=== PATIENT | male | born 1980 | race Caucasian/White ===

== ENCOUNTER 2023-10-24 12:27 | Outpatient (AMB) | payer MEDICARE, MEDICAID, SELFPAY ==
--- NOTE | 2023-10-24 12:32 | A.OFFVIS_ITS ---
Vital Signs 10/24/23 12:42 Height 5 ft 5 in Weight 252 lb 3.341 oz BMI 42.0 BP 110/68 Blood Pressure Location Lt brachial Position Sitting Pulse 90 Pulse Source Pulse Oximeter Pulse Oximetry (%) 98 Oxygen Delivery Method Room Air Intake Visit Reasons: Blood in stool Intake Note: Gurvinder presents in office today for an initial assessment visit. CC: Pt reports having melena. Pt reports onset over the course of the last few years (pandemic period). Pt reports that he has had intermittent episodes which typically last only for a day or two. Pt reports that he typically has an episode 2-3 times per year. Pt reports that the presentation appears as bright red blood. Pt states that it seems rather idiopathic in nature and has no provocation. Pt also reports having hx of IBS, which is uncontrolled at the moment. 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 male is here today for pre colonoscopy screening.? Patient was sent to us by his PCP.? This is his first colonoscopy screening.? Denies any personal or family history of gastrointestinal disease, colon polyps, or CRC.? Patient admits to have blood in his stools few times a year. Patient denies feeling really constipated, however occasionally he feels like he will have few bowel movements a day that are rather soft and then mild constipation. Patient report s that his symptoms are usually after he eats certain meals. Diagnosed with IBS in the past. Symptoms started around 2020 during COVID. Patient denies melena, unintentional weight loss. Patient reports of so postprandial reflux and occasionally epigastric discomfort. Patient admits to abdominal bloating postprandially. [facility] Medical History (Updated 10/24/23 @ 12:38 by ELLIOT Bradley) Gallstones Anxiety and depression Schizophrenic disorder IBS (irritable bowel syndrome) Surgical History (Updated 10/24/23 @ 12:38 by ELLIOT Bradley) History of cholecystectomy Social History (Updated 10/24/23 @ 12:40 by ELLIOT Bradley) Alcohol intake: current Comment: Hardly any. Patient Tobacco Use Status: Current everyday Tobacco user Tobacco use type: Cigarette Cigarette Packs Per Day: 1 e-Cigarette/Vaping Use: Former Use Substance Use Type: Marijuana Review of Systems Const Denies weight gain and Denies weight loss ENT Reports no additional complaints, Denies dysphagia and Denies odynophagia Card Reports no additional complaints Resp Reports no additional complaints GI Denies abdominal pain, Denies belching, Denies melena, Reports bloating, Reports constipation (Occasional), Denies dysphagia, Denies excessive flatus, Denies dyspepsia, Reports heartburn, Denies diarrhea, Reports loose stools, Denies nausea, Denies odynophagia and Denies vomiting Reports no additional complaints Musc Reports no additional complaints Neuro Reports no additional complaints Psych Reports no additional complaints Endo Reports no additional complaints Physical Exam Vital Signs: Last Vital Signs Pulse 90 10/24/23 12:42 BP 110/68 10/24/23 12:42 Pulse Ox 98 10/24/23 12:42 Oxygen Delivery Method Room Air 10/24/23 12:42 BMI result Body Mass Index 42.0 Const General: healthy appearing and no acute distress Nutritional Appearance: obese Orientation/consciousness: patient oriented x3 Resp Effort & Inspection: normal respiratory effort, able to speak in complete sentences, no tracheal deviation and symmetric chest movement Auscultation: clear to auscultation bilaterally Cardio Rate: regular rate GI Inspection: Yes normal to inspection, No distended and Yes obesity Palpation (GI): Soft to palpation, not firm, nontender and No hepatosplenomegaly present Auscultation: normal bowel sounds General: Yes no CVA tenderness Back/Spine/Pelvis Back: no CVA tenderness Skin General skin exam: elasticity normal, turgor normal and dry skin Neuro General: patient oriented x3 Psych Appearance: grossly normal Mental Status: mental status grossly normal Assessment & Plan Assessment & Plan (1) Screen for colon cancer: Code(s): Z12.11 - Encounter for screening for malignant neoplasm of colon (2) IBS (irritable bowel syndrome): Code(s): K58.9 - Irritable bowel syndrome without diarrhea Qualifiers: Irritable bowel syndrome type: without diarrhea Qualified Code(s): K58.9 - Irritable bowel syndrome without diarrhea (3) Rectal bleed: Code(s): K62.5 - Hemorrhage of anus and rectum Plan Patient will increase fiber intake in his diet. Will start him on fiber supplements. Patient will take senna in the afternoon to help him empty his bowels better. Will send a script for Proctosol. Patient will start taking pantoprazole in the morning to help him with acid reflux. Discussed with patient the importance of avoiding dietary triggers and late night snacking. Staying upright for minimum 3 hours after meals discussed with patient. Patient will return in 2 months to discuss going for colonoscopy and possible upper endoscopy if his symptoms continue. Patient is agreeable to this plan and verbalizes understanding of instructions. He was given the opportunity to ask questions and all questions answered. Thank you for allowing me to participate in his care Medications: New sennosides (Natural Senna Laxative) 8.6 mg PO BEDTIME 90 tabs 3RF constipation K59.00 - Constipation, unspecified hydrocortisone 2.5% (Proctosol HC) 1 appl CA BID-QID PRN 30 grams 2RF hemorrhoids K64.9 - Unspecified hemorrhoids methylcellulose (laxative) (Citrucel) take it with full glass of water 500 mg PO DAILY 90 tabs 2RF K59.00 - Constipation, unspecified pantoprazole take one tablet half an hour before breakfast 40 mg PO DAILY 30 tabs 2RF K21.9 - Gastro-esophageal reflux disease without esophagitis Coding Level of Care Code New Pt Level 3 (22853) Diagnoses Screen for colon cancer Z12.11 Irritable bowel syndrome without diarrhea K58.9 Irritable bowel syndrome type: without diarrhea Rectal bleed K62.5 Time Spent (min) 40 Comment 30 minutes spent with patient and additional 10 minutes spent reviewing his records
[2023-10-24 12:42] VITALS: BP 110/68; PULSE 90; O2SAT 98; BMI 42.0
== END 2023-10-24 14:15 | disposition home or self-care (01) ==
PROVIDERS: PCP Family Medicine; Visit Provider Nurse Practitioner Family
DX: K62.5 Hemorrhage of anus and rectum (principal); K58.9 Irritable bowel syndrome, unspecified; Z12.11 Encounter for screening for malignant neoplasm of colon
CPT/HCPCS: 99203

== ENCOUNTER → 2023-10-24 12:27 | Outpatient (BNVA) | payer MEDICARE, MEDICAID, SELFPAY | PROVIDERS: PCP Family Medicine; Visit Provider Nurse Practitioner Family | DX: Z12.11 Encounter for screening for malignant neoplasm of colon (principal); K58.9 Irritable bowel syndrome, unspecified; K62.5 Hemorrhage of anus and rectum | CPT/HCPCS: 99202 ==

== ENCOUNTER 2023-11-06 10:52 | Day surgery (SDC) | payer MEDICARE, MEDICAID, SELFPAY ==
[2023-11-06 11:25] VITALS: BMI 43.3
[2023-11-06 11:27] VITALS: BP 130/84; PULSE 78; RESP 20; TEMP 36.4; O2SAT 96
[2023-11-06] MEDS: Lactated Ringers 1,000 ML 50 ML IVCONT (11:51)
--- NOTE | 2023-11-06 12:07 | P.CONAN_ITS ---
[facility] Past Medical History Medical History (Updated 10/24/23 @ 12:38 by ELLIOT Bradley) Gallstones Anxiety and depression Schizophrenic disorder IBS (irritable bowel syndrome) Family History Family history of problems with anesthesia: No Surgical History Surgical History (Updated 10/24/23 @ 12:38 by ELLIOT Bradley) History of cholecystectomy History of Problems with Anesthesia: No Social History Social History (Updated 10/24/23 @ 12:40 by ELLIOT Bradley) Alcohol intake: current Alcohol intake frequency: does not drink Comment: Hardly any. Patient Tobacco Use Status: Current everyday Tobacco user Tobacco use type: Cigarette Cigarette Packs Per Day: 1 e-Cigarette/Vaping Use: Former Use Substance Use Type: Marijuana Are you DNR?: No Advance Directives: No Advance Directives Information Provided: Yes Nutrition Risks: No Nutritional Risk Meds Allergies Allergy/AdvReac Type Severity Reaction Status Date / Time codeine Allergy Unknown Anaphylaxis Verified 10/24/23 12:40 Active Medications: Current Medications Lactated Ringer's (Lr) 1,000 mls @ 50 mls/hr IVCONT .Q20H FERNANDEZ Last Admin: 11/06/23 11:51 Dose: 50 mls/hr Home Medications ?Medication ?Instructions ?Recorded ?Confirmed ?Last Taken ?Type dextroamphetamine-amphetamine 30 1 tab PO TID 10/24/23 Unknown History mg tablet diazepam 10 mg tablet 10 mg PO DAILY PRN 10/24/23 Unknown History haloperidol 5 mg tablet 5 mg PO BEDTIME 10/24/23 Unknown History nicotine 21 mg/24 hr daily 1 patch topical DAILY 10/24/23 Unknown History transdermal patch valacyclovir 1 gram tablet 4,000 mg PO ONCE 10/24/23 Unknown History Exam Height,Weight and Vital Signs: Height 5 ft 5 in Weight 118.07 kg Last Vital Signs Temp 97.5 F 11/06/23 11:27 Pulse 78 11/06/23 11:27 Resp 20 11/06/23 11:27 BP 130/84 11/06/23 11:27 Pulse Ox 96 11/06/23 11:27 O2 Del Method Room Air 11/06/23 11:27 Airway Mallampati Class: II TM Dist: >3cm Neck ROM: Full Heart: rrr Lungs: cta Assessment and Plan Assessment Anesthesia Assessment: Anesthesia Plan Discussed and Chart Reviewed Final Anesthetic Review Family History of Problems with Anesthesia: No History of Problems with Anesthesia: No NPO: Yes ASA Class: II Final Preanesthetic Review: No Changes in Pt Med Stat, Meds/Allgs Chart Reviewed and Consent Obtained/Reviewed Patient Risk: Low Procedure Risk: Low Anesthetic Plan Anesthetic Plan: MAC: Disposition: Standard PACU
--- NOTE | 2023-11-06 12:23 | MHC.SHP ---
Pre-Procedural Eval Section A - 24 Hr Update-Section A only Date of Service: 11/06/23 Section B - Complete if H&P > 30 days Chief Complaint: Gastro-esophageal reflux disease without esophagit Details of Present Illness: rectal bleeding and nausea Relevant Family History (Specify if Yes): No Relevant Social History: Tobacco Use (thc use) Present Medications: see Short Stay Collaborative assessment Medical History: Significant History ( Gallstones Anxiety and depression Schizophrenic disorder IBS (irritable bowel syndrome)) History of Previous Operations: Relevant previous surgery/procedure and date(s) (History of cholecystectomy) Allergies: Allergies Allergy/AdvReac Type Severity Reaction Status Date / Time codeine Allergy Unknown Anaphylaxis Verified 10/24/23 12:40 Review of Systems Sugical H&P ROS: Negative: Constitution, Cardiovascular, Respiratory, Neurological, Psychiatric, Hem-Onc, Allergic/Immunologic, Gastrointestinal, Genitourinary, Musculoskeletal, Integumentary, Endocrine and Eyes/Ears/Nose/Throat Exam Surgical H&P Exam: Normal: HEENT, Normal: Heart, Normal: Lungs, Normal: Extremities, Normal: Abdomen, Normal: Skin and Normal: Neurological Plan Diagnosis/Plan: Unchanged I have reviewed the history and physical and performed a pertinent physical examination on my patient. No changes have occurred unless specified. Time Spent With Patient Time: Total time managing care of this patient today ____ minutes.
--- NOTE | 2023-11-06 13:38 | P.OPN-COLO_ITS ---
Colonoscopy Operative Note Operative Note Date of Service: 11/06/23 Narrative: Operative Information Procedure Description: EGD, Colonoscopy Indication: nausea, rectal bleeding Anesthesia: MAC FLEXIBLE TRANSORAL UPPER GASTROINTESTINAL ENDOSCOPY AND COLONOSCOPY PROCEDURE NOTE UPPER ENDOSCOPY Consent: Indications for the procedure and potential complications of bleeding, perforation, reaction to medications and missed diagnosis were discussed with the patient and informed consent was obtained. Instrument: Olympus GIF H 190 J mid size upper endoscope Monitoring: Vital signs and clinical assessment, continuous EKG monitoring, Pulse oximetry, Carbon Dioxide monitoring and blood pressure monitoring were done throughout the procedure. Procedure: The patient was placed in the left lateral decubitis position and pre-procedure medications were administered and a bite block was placed. The endoscope was inserted into the mouth and advanced under direct vision to the third part of duodenum. A careful inspection was made as the upper endoscope was withdrawn including a retroflexed examination of the proximal stomach; Findings and interventions are described below. Findings: Larynx:normal Esophagus: GE junction at 40 cm, diaphragm hiatus at 40 cm, boggy inflammed mucosa, bx taken from GEJ, distal and proximal esophagus Stomach: Patchy erythema and granularity. Biopsies were obtained. Grade 2 flap valve on retroflexed examination of the cardia. Duodenum: Mild duodenitis --bx taken Intervention: Biopsies as noted above, COLONOSCOPY Instrument: Olympus variable stiffness pediatric scope 190L Colonoscopy Monitoring: Vital signs and clinical assessment, continuous EKG monitoring, Pulse oximetry, Carbon Dioxide monitoring and blood pressure monitoring were done throughout the procedure. Colon withdrawal time was 9 minutes. Procedure: The patient was placed in the left lateral decubitis position and pre-procedure medications were administered. After a digital rectal examination of the ano-rectum, the video colonoscope was inserted into the rectum and advanced through the colon to the cecum/TI. The colonoscope was slowly withdrawn in a retrograde panoramic fashion and the colon mucosa was carefully examined including a retroflexed view of the rectum. Findings and interventions are described below. Procedure Difficulty:easy Findings: Terminal [id number] taken Random colon bx taken, also limited peristalsis seen Cecum:normal Ascending Colon: normal Transverse Colon -normal Descending Colon:normal Sigmoid Colon: normal Rectum: Retroflexion with medium internal hemorrhoids, grade I-- x 3 sessile polyps 4-5 mm removed with cold forceps Anorectum - normal Colon preparation: [place] Bowel Preparation Scale Right colon; 2 Transverse colon: 2 Left colon; 2 (0 = Unprepared colon segment with mucosa not seen due to solid stool that cannot be cleared. 1 = Portion of mucosa of the colon segment seen, but other areas of the colon segment not well seen due to staining, residual stool and/or opaque liquid. 2 = Minor amount of residual staining, small fragments of stool and/or opaque liquid, but mucosa of colon segment seen well. 3 = Entire mucosa of colon segment seen well with no residual staining, small fragments of stool or opaque liquid) Impression and Post Procedure Diagnosis: Endoscopy Findings: esophagitis gastritis Colonoscopy Findings: colon polyps internal hemorrhoids Plan: Await Pathology results Repeat Colonoscopy in 5 years if adenomatous polyps, 10 yrs if hyperplastic or earlier if clinically indicated High fiber diet leaflet avoid straining at stool, epsom salts and sitz bath, anusol supps or cream check compliance with PPI and correct timing etc Above findings were reviewed with the patient and relevant handouts were provided if indicated.
[2023-11-06 13:44] VITALS: BP 131/74; PULSE 79; RESP 16; TEMP 36.1; O2SAT 96
[2023-11-06 13:59] VITALS: BP 131/82; PULSE 78; RESP 16; TEMP 36.3; O2SAT 96
== END 2023-11-06 14:27 | disposition home or self-care (01) ==
PROVIDERS: Visit Provider Internal Medicine Gastroenterology
PROC: (CPT 45380; principal; 2023-11-06 12:30)
DX: K62.5 Hemorrhage of anus and rectum (principal); K62.1 Rectal polyp; K58.9 Irritable bowel syndrome, unspecified; K59.00 Constipation, unspecified; K59.89 Other specified functional intestinal disorders; K64.0 First degree hemorrhoids; K21.9 Gastro-esophageal reflux disease without esophagitis; K20.80 Other esophagitis without bleeding; K29.50 Unspecified chronic gastritis without bleeding; K29.80 Duodenitis without bleeding; K44.9 Diaphragmatic hernia without obstruction or gangrene; F25.9 Schizoaffective disorder, unspecified; F41.8 Other specified anxiety disorders; Z79.899 Other long term (current) drug therapy; Z90.49 Acquired absence of other specified parts of digestive tract; Z88.5 Allergy status to narcotic agent; F17.210 Nicotine dependence, cigarettes, uncomplicated
CPT/HCPCS: 45380; 43239; 88305; 88313; 88342; J2704

== ENCOUNTER → 2023-11-06 10:52 | Outpatient (BNV) | payer MEDICARE, MEDICAID, SELFPAY | PROVIDERS: Visit Provider Internal Medicine Gastroenterology | DX: K29.70 Gastritis, unspecified, without bleeding (principal); K20.90 Esophagitis, unspecified without bleeding; K62.5 Hemorrhage of anus and rectum; K62.1 Rectal polyp; K64.0 First degree hemorrhoids | CPT/HCPCS: 43239; 45380 ==

== ENCOUNTER 2023-12-02 13:54 | Outpatient (AMB) | payer MEDICARE, MEDICAID, SELFPAY ==
--- NOTE | 2023-12-02 13:59 | MHC.OFFVIS ---
Vital Signs 12/02/23 14:05 Height 5 ft 5 in Weight 249 lb 9.012 oz BMI 41.5 BP 136/86 Blood Pressure Location Lt brachial Position Sitting Pulse 90 Pulse Source Pulse Oximeter Pulse Oximetry (%) 96 Oxygen Delivery Method Room Air Intake Visit Reasons: s/p colon Intake Note: Gurvinder presents in office today for a scheduled post op FUV. CC; Pt reports that he in fact had an EGD and a colo s.p. Pt denies any post op complications or new concerns. Pt is here to discuss the findings of his s/p. Cut Order Hand Required: No Accompanied by: Significant Other Allergies codeine Allergy (Unknown, Verified 12/02/23 14:05) Anaphylaxis HPI HPI s/p colon: Details: LAST VISIT: Screen for colon cancer IBS (irritable bowel syndrome) Rectal bleed Plan Patient will increase fiber intake in his diet. Will start him on fiber supplements. Patient will take senna in the afternoon to help him empty his bowels better. Will send a script for Proctosol. Patient will start taking pantoprazole in the morning to help him with acid reflux. Discussed with patient the importance of avoiding dietary triggers and late night snacking. Staying upright for minimum 3 hours after meals discussed with patient. Patient will return in 2 months to discuss going for colonoscopy and possible upper endoscopy if his symptoms continue. Patient is agreeable to this plan and verbalizes understanding of instructions. He was given the opportunity to ask questions and all questions answered. ? Thank you for allowing me to participate in his care Medications New sennosides (Natural Senna Laxative) 8.6 mg PO BEDTIME 90 tabs 3RF constipation K59.00 hydrocortisone 2.5% (Proctosol HC) 1 appl ID BID-QID PRN 30 grams 2RF hemorrhoids K64.9 methylcellulose (laxative) (Citrucel) take it with full glass of water 500 mg PO DAILY 90 tabs 2RF K59.00 pantoprazole take one tablet half an hour before breakfast 40 mg PO DAILY 30 tabs 2RF K21.9 UPPER ENDOSCOPY AND COLONOSCOPY: Findings: Larynx:normal Esophagus: GE junction at 40 cm, diaphragm hiatus at 40 cm, boggy inflammed mucosa, bx taken from GEJ, distal and proximal esophagus Stomach: Patchy erythema and granularity. Biopsies were obtained. Grade 2 flap valve on retroflexed examination of the cardia. Duodenum: Mild duodenitis --bx taken Intervention: Biopsies as noted above, Findings: Terminal [id number]-[id number]-dv taken Random colon bx taken, also limited peristalsis seen Cecum:normal Ascending Colon: normal Transverse Colon -normal Descending Colon:normal Sigmoid Colon: normal Rectum: Retroflexion with medium internal hemorrhoids, grade I-- x 3 sessile polyps 4-5 mm removed with cold forceps Anorectum - normal Colon preparation: [place] Bowel Preparation Scale Right colon; 2 Transverse colon: 2 Left colon; 2 (0 = Unprepared colon segment with mucosa not seen due to solid stool that cannot be cleared. 1 = Portion of mucosa of the colon segment seen, but other areas of the colon segment not well seen due to staining, residual stool and/or opaque liquid. 2 = Minor amount of residual staining, small fragments of stool and/or opaque liquid, but mucosa of colon segment seen well. 3 = Entire mucosa of colon segment seen well with no residual staining, small fragments of stool or opaque liquid) Impression and Post Procedure Diagnosis: Endoscopy Findings: esophagitis gastritis Colonoscopy Findings: colon polyps internal hemorrhoids Plan: Await Pathology results Repeat Colonoscopy in 5 years if adenomatous polyps, 10 yrs if hyperplastic or earlier if clinically indicated High fiber diet leaflet avoid straining at stool, epsom salts and sitz bath, anusol supps or cream check compliance with PPI and correct timing etc PATHOLOGY RESULTS: Diagnosis A. Duodenum, biopsy: Duodenal mucosa with preserved villi and no specific change. B. Stomach, biopsy: Gastric antral and body mucosa with focal minimal chronic inactive inflammation; negative for H pylori, intestinal metaplasia and dysplasia. C. Gastroesophageal junction, biopsy: Squamocolumnar mucosa with minimal chronic inactive inflammation; negative for intestinal metaplasia and dysplasia. D. Esophagus, distal, biopsy: Squamous mucosa with no specific change; no columnar mucosa present. E. Esophagus, proximal, biopsy: Squamous mucosa with no specific change; no columnar mucosa present. F. Terminal ileum, biopsy: Ileal mucosa with lamina propria hemorrhage otherwise no specific change. G. Colon, random, biopsy: Colonic mucosa with lymphoid aggregates and no specific change. H. Colon, 3 rectal polyps: Hyperplastic polyps (multiple pieces). TODAY'S VISIT: Patient is here today for follow-up and to discuss colonoscopy and upper endoscopy results. Patient denies any ill effects from the prep, anesthesia or procedure itself. Patient is here with his significant other. Results from upper endoscopy, colonoscopy and biopsy discussed with patient. Hyperplastic polyps seen. Patient was found to have chronic inactive inflammation at the gastric junction. Mild inflammation in gastric body without intestinal dysplasia. Patient continues to have occasional loose stools postprandially. Patient reports that he has been having those symptoms for most of his life and he does not want to do anything about it at this time. Patient denies any melena, hematochezia. Denies any dyspepsia, dysphagia or odynophagia patient reports that he is taking omeprazole and his symptoms of acid reflux are better. Patient denies any nausea or vomiting. Denies any other GI concerning symptoms. [facility] Medical History Gallstones Anxiety and depression Schizophrenic disorder IBS (irritable bowel syndrome) Surgical History Hx of endoscopy H/O colonoscopy History of cholecystectomy Social History Alcohol intake: current Alcohol intake frequency: does not drink Comment: Hardly any. Patient Tobacco Use Status: Current everyday Tobacco user Tobacco use type: Cigarette Cigarette Packs Per Day: 1 e-Cigarette/Vaping Use: Former Use Substance Use Type: Marijuana Review of Systems Const Denies weight gain and Denies weight loss ENT Reports no additional complaints, Denies dysphagia and Denies odynophagia Card Reports no additional complaints Resp Reports no additional complaints GI Denies abdominal pain, Denies belching, Denies melena, Reports bloating, Reports constipation (Occasional), Denies dysphagia, Denies excessive flatus, Denies dyspepsia, Denies heartburn, Denies diarrhea, Reports loose stools, Denies nausea, Denies odynophagia and Denies vomiting Reports no additional complaints Musc Reports no additional complaints Neuro Reports no additional complaints Psych Reports no additional complaints Endo Reports no additional complaints Physical Exam Vital Signs: Last Vital Signs Pulse 90 12/02/23 14:05 BP 136/86 12/02/23 14:05 Pulse Ox 96 12/02/23 14:05 Oxygen Delivery Method Room Air 12/02/23 14:05 BMI result Body Mass Index 41.5 Const General: healthy appearing and no acute distress Nutritional Appearance: obese Orientation/consciousness: patient oriented x3 Resp Effort & Inspection: normal respiratory effort, able to speak in complete sentences, no tracheal deviation and symmetric chest movement Auscultation: clear to auscultation bilaterally Cardio Rate: regular rate GI Inspection: Yes normal to inspection, No distended and Yes obesity Palpation (GI): Soft to palpation, not firm, nontender and No hepatosplenomegaly present Auscultation: normal bowel sounds General: Yes no CVA tenderness Back/Spine/Pelvis Back: no CVA tenderness Skin General skin exam: elasticity normal, turgor normal and dry skin Neuro General: patient oriented x3 Psych Appearance: grossly normal Mental Status: mental status grossly normal Assessment & Plan Assessment & Plan (1) IBS (irritable bowel syndrome): Code(s): K58.9 - Irritable bowel syndrome without diarrhea Qualifiers: Irritable bowel syndrome type: with diarrhea Qualified Code(s): K58.0 - Irritable bowel syndrome with diarrhea (2) Rectal bleed: Code(s): K62.5 - Hemorrhage of anus and rectum (3) GERD (gastroesophageal reflux disease): Code(s): K21.9 - Gastro-esophageal reflux disease without esophagitis Qualifiers: Esophagitis presence: without esophagitis Qualified Code(s): K21.9 - Gastro-esophageal reflux disease without esophagitis Plan Hyperplastic polyps found. Colonoscopy in 10 years, sooner if clinically necessary. Continue omeprazole Proctosol daily. Avoid dietary triggers and late night snacking. Staying upright for minimum 3 hours after meals discussed with patient. Discussed with patient high-fiber diet. Option of low FODMAP diet discussed with patient. Patient wants to follow-up on as needed basis. He will follow-up with his PCP and if any worsening symptoms he will call our office. Patient is agreeable to this plan and verbalizes understanding of instructions. He was given the opportunity to ask questions and all questions answered. Thank you for allowing me to participate in his care Medications: Discontinued pantoprazole take one tablet half an hour before breakfast Discontinued Reason: Doctor's Order 40 mg PO DAILY 30 tabs 2RF K21.9 - Gastro-esophageal reflux disease without esophagitis Coding Level of Care Code Est Pt Level 3 (02394) Diagnoses Irritable bowel syndrome with diarrhea K58.0 Irritable bowel syndrome type: with diarrhea Rectal bleed K62.5 Gastroesophageal reflux disease without esophagitis K21.9 Esophagitis presence: without esophagitis Time Spent (min) 30 Comment 20 minutes spent with patient and additional 10 minutes spent reviewing his records
[2023-12-02 14:05] VITALS: BP 136/86; PULSE 90; O2SAT 96; BMI 41.5
== END 2023-12-02 14:48 | disposition home or self-care (01) ==
PROVIDERS: Visit Provider Nurse Practitioner Family
DX: K58.0 Irritable bowel syndrome with diarrhea (principal); K62.5 Hemorrhage of anus and rectum; K21.9 Gastro-esophageal reflux disease without esophagitis
CPT/HCPCS: 99213

== ENCOUNTER → 2023-12-02 13:54 | Outpatient (BNVA) | payer MEDICARE, MEDICAID, SELFPAY | PROVIDERS: Visit Provider Nurse Practitioner Family | DX: K21.9 Gastro-esophageal reflux disease without esophagitis (principal); K58.0 Irritable bowel syndrome with diarrhea; K62.5 Hemorrhage of anus and rectum | CPT/HCPCS: 99212 ==